=== PATIENT | female | born 1980 | race Caucasian/White ===

== ENCOUNTER 2016-11-13 20:15 | Emergency (ER) | payer MEDICAID, OTHER ==
[2016-11-13 20:46] VITALS: BP 123/72; PULSE 73; RESP 16; TEMP 98.7; O2SAT 100
--- NOTE | 2016-11-13 20:47 | ED PDOC ---
Arrival/HPI - General Chief Complaint: Breast Problem Time Seen by Provider: 11/13/16 20:31 Historian: Patient, Family (son) - History of Present Illness Narrative History of Present Illness (Text): 11/13/16 21:07 This 36 yo female presents to this ED c/o pruritic rash x 2 days. Patient stated last night left breast rash became painful. Rash blanches on palpation. Denies fever, sick contact, recent travel. Past Medical History - Provider Review Nursing Documentation Reviewed: Yes - Pulmonary Hx Asthma: Yes - Endocrine/Metabolic Hx Diabetes Mellitus Type 2: Yes - Psychiatric Hx Substance Use: No - Anesthesia Hx Anesthesia: No Hx Anesthesia Reactions: No Hx Malignant Hyperthermia: No Family/Social History - Physician Review Nursing Documentation Reviewed: Yes Family/Social History: No Known Family HX Smoking Status: Never Smoked Hx Alcohol Use: No Hx Substance Use: No Allergies/Home Meds Allergies/Adverse Reactions: Allergies No Known Allergies Allergy (Verified 11/13/16 20:39) Review of Systems - Review of Systems Constitutional: Normal. absent: Fatigue, Weight Change Eyes: Normal ENT: Normal Respiratory: Normal. absent: SOB, Cough Cardiovascular: Normal. absent: Chest Pain, Palpitations Gastrointestinal: Normal. absent: Abdominal Pain, Diarrhea, Nausea, Vomiting Genitourinary Female: Normal. absent: Dysuria, Frequency, Hematuria, Urine Output Changes, Vaginal Bleeding, Vaginal Discharge Musculoskeletal: Normal Skin: Rash, Pruritis, Cellulitis, Other (Left breast) Neurological: Normal. absent: Headache, Dizziness, Focal Weakness, Gait Changes , Speech Changes Endocrine: Normal Hemo/Lymphatic: Normal Psychiatric: Normal Physical Exam Vital Signs Temp Pulse Resp BP Pulse Ox 11/13/16 20:16 98.7 F 73 16 123/72 100 Temperature: Afebrile Blood Pressure: Normal Pulse: Regular Respiratory Rate: Normal Appearance: Positive for: Well-Appearing, Non-Toxic, Comfortable Pain Distress: None Mental Status: Positive for: Alert and Oriented X 3 - Systems Exam Head: Present: Atraumatic, Normocephalic Pupils: Present: PERRL Extroacular Muscles: Present: EOMI Conjunctiva: Present: Normal Mouth: Present: Moist Mucous Membranes Pharnyx: Present: Normal. No: ERYTHEMA, EXUDATE, TONSILS ENLARGED Neck: Present: Normal Range of Motion Respiratory/Chest: Present: Clear to Auscultation, Good Air Exchange. No: Respiratory Distress, Accessory Muscle Use Cardiovascular: Present: Regular Rate and Rhythm, Normal S1, S2. No: Murmurs Abdomen: Present: Normal Bowel Sounds. No: Tenderness, Distention, Peritoneal Signs Breast/Axillary: Present: Other ((+) 1 cm mild erythema area located LLQ of left breast. (+) scattered rash over UE, and trunk, which resembles contac dermatitis. Rash blanches on palpation. No abscess. No streaking erythema. No axillary painful nodes. 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 No: Axillary Lymphad, Discoloration, Fluctuance, Masses, Nipple Discharge, Swelling Back: Present: Normal Inspection. No: CVA Tenderness Upper Extremity: Present: Normal Inspection. No: Cyanosis, Edema Lower Extremity: Present: Normal Inspection. No: Edema Neurological: Present: GCS=15, CN II-XII Intact, Speech Normal Skin: Present: Warm, Dry, Rashes (See Breast), Normal Color Lymphatic: No: Axillary Adenopathy Psychiatric: Present: Alert, Oriented x 3, Normal Insight, Normal Concentration Medical Decision Making ED Course and Treatment: 11/13/16 22:17 Re-evaluation. Patient feels better. Discussed results and plan with patient who expresses understanding. All questions answered and there is agreement with the plan to discharge home with instructions. Patient stable for discharge. Return if symptoms persist or worsen Re-evaluation Time: 22:19 Reassessment Condition: Re-examined, Improved - Medication Orders Current Medication Orders: Discontinued Medications Amoxicillin/Clavulanate Potassium (Augmentin 875 Mg-125 Mg Tab) 1 tab PO STAT STA PRN Reason: Protocol Stop: 11/13/16 21:08 Last Admin: 11/13/16 22:27 Dose: 1 tab Diphenhydramine HCl (Benadryl) 25 mg PO STAT STA Stop: 11/13/16 21:34 Last Admin: 11/13/16 22:46 Dose: 25 mg Famotidine (Pepcid) 40 mg PO STAT STA Stop: 11/13/16 21:34 Last Admin: 11/13/16 22:46 Dose: 40 mg Tetanus/Reduced Diphtheria/Acell Pertussis (Boostrix Vaccine Inj) 0.5 ml IM .ONCE ONE Stop: 11/13/16 21:10 Last Admin: 11/13/16 22:27 Dose: 0.5 ml Trimethoprim/Sulfamethoxazole (Bactrim Ds Tab) 1 tab PO STAT STA PRN Reason: Protocol Stop: 11/13/16 21:34 Last Admin: 11/13/16 22:46 Dose: 1 tab Disposition/Present on Arrival - Present on Arrival Any Indicators Present on Arrival: No History of DVT/PE: No History of Uncontrolled Diabetes: No Urinary Catheter: No History of Decub. Ulcer: No History Surgical Site Infection Following: None - Disposition Have Diagnosis and Disposition been Completed?: Yes Diagnosis: Cellulitis, Contact dermatitis Disposition: HOME/ ROUTINE Disposition Time: 22:20 Patient Plan: Discharge Condition: GOOD Discharge Instructions (ExitCare): Contact Dermatitis (ED), Cellulitis (ED) Additional Instructions: Call private doctor for follow up visit in 1-2 days. Clean wound with soap and water daily, and applied OTC topical antibiotic cream. take medication as instructed. Return to emergency if rash worsen, or unable to see doctor. Prescriptions: Amoxicillin/Clavulanate [Augmentin 875 MG-125 MG] 1 tab PO BID #14 tab Hydroxyzine Pamoate [Vistaril] 25 mg PO TID PRN #20 capsule PRN Reason: Itching / Pruritus Sulfamethoxazole/Trimethoprim [Bactrim DS 800 mg-160 mg] 1 tab PO BID #14 tab Referrals: Eliu Shirley MD [Primary Care Provider] - Follow up with primary
[2016-11-13] MEDS ORDERED: Amoxicillin-Clav 875-125 mg Tab PO STA (21:07)
[2016-11-13] MEDS ORDERED: TDAP Vaccine 0.5 mL Syr IM ONE (21:09)
[2016-11-13] MEDS ORDERED: Tmp-Smz 800 mg-160 mg DS Tab PO STA (21:33)
[2016-11-13] MEDS ORDERED: DiphenhydrAMINE 12.5 mg/5 ml LIQ UD (5 ml) PO STA (21:33)
== END 2016-11-13 22:47 | disposition home or self-care (01) ==
LOC: ED 20:15
DX: L25.9 Unspecified contact dermatitis, unspecified cause (principal); N61.0 Mastitis without abscess; Z23 Encounter for immunization

== ENCOUNTER 2016-11-19 20:49 | Emergency (ER) | payer OTHER ==
[2016-11-19 21:11] VITALS: RESP 16; TEMP 99.2
--- NOTE | 2016-11-19 22:30 | ED PDOC ---
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 pt was seen in the ER and treated with medications for cellulitis to breast. pt states that she was then seen by PMD and given rx for mammogram. pt presents today requesting mammogram. pt concerned about cancer. pt denies family hx of cancer. no fever/ chills. pt states rash is pruritic. pt states she is now having bleeding to the rash. pt also c/o pain to the right knee and thigh x 1 week. pt states pain is intermittent. denies trauma or injury. denies swelling. no medications taken for pain. no other complaints. Past Medical History - Provider Review Nursing Documentation Reviewed: Yes - Travel History Have you recently traveled outside [place] w/in the past 3 mons?: No - Tetanus Immunization Tetanus Immunization: Unknown - Reproductive Menopause: No - Pulmonary Hx Asthma: Yes - Endocrine/Metabolic Hx Diabetes Mellitus Type 2: Yes - Psychiatric Hx Substance Use: No - Anesthesia Hx Anesthesia: No Hx Anesthesia Reactions: No Hx Malignant Hyperthermia: No Family/Social History - Physician Review Nursing Documentation Reviewed: Yes Family/Social History: Unknown Family HX Smoking Status: Never Smoked Hx Alcohol Use: No Hx Substance Use: No Allergies/Home Meds Allergies/Adverse Reactions: Allergies No Known Allergies Allergy (Verified 11/19/16 21:11) Home Medications: Home Meds Medication Instructions Recorded Confirmed Metformin ER [Glucophage XR] 500 mg PO DAILY 11/19/16 11/19/16 Review of Systems - Review of Systems Constitutional: absent: Fatigue, Fevers Respiratory: absent: SOB, Cough Cardiovascular: absent: Chest Pain, Palpitations Gastrointestinal: absent: Abdominal Pain, Nausea, Vomiting Genitourinary Female: absent: Dysuria, Frequency, Hematuria Musculoskeletal: Arthralgias (right knee pain). absent: Back Pain, Neck Pain Skin: Rash, Pruritis Physical Exam Vital Signs Reviewed: Yes Vital Signs Temp Pulse Resp BP Pulse Ox 11/19/16 23:53 60 16 122/67 99 11/19/16 21:04 99.2 F 75 16 104/62 98 Temperature: Afebrile Blood Pressure: Normal Pulse: Regular Respiratory Rate: Normal Appearance: Positive for: Well-Appearing, Non-Toxic, Comfortable Pain Distress: None Mental Status: Positive for: Alert and Oriented X 3 - Systems Exam Head: Present: Atraumatic Mouth: Present: Moist Mucous Membranes Neck: Present: Normal Range of Motion Respiratory/Chest: Present: Clear to Auscultation, Good Air Exchange. No: Respiratory Distress, Accessory Muscle Use Cardiovascular: Present: Regular Rate and Rhythm, Normal S1, S2. No: Murmurs Breast/Axillary: Present: Erythema (left breast there is erythematous excoriated rash to the upper outer aspect of the left breast; no purulent discharge noted. ), Symmetrical, Tender to Palpation. No: Axillary Lymphad, Fluctuance, Swelling Lower Extremity: Present: Normal Inspection, NORMAL PULSES, Normal ROM, Tenderness (right leg; + ttp over right distal thigh and right knee; no edema, no erythema; no ecchymosis; full rom of knee. ambulates with steady gait. sensation and distal pulses intact. cap refill <2. ), Neurovascularly Intact, Capillary Refill < 2 s. No: CALF TENDERNESS, Swelling Neurological: Present: GCS=15, Speech Normal Skin: Present: Warm, Dry Psychiatric: Present: Alert, Oriented x 3 Medical Decision Making ED Course and Treatment: 11/20/16 00:58 36yr old female presents with rash to left breast. has rx for mammogram. wants mammogram today. also with right knee and leg pain. xray knee; no fracture duplex; right leg; no dvt verbal report from [facility]. advised f/u with pmd and breast specialist. advised f/u with orthopedist for knee pain. advised continuing abx as prescribed and added bactroban. stressed importance of getting Mammogram to check for cancer as sometimes cancer can present as a rash. all information was translated using the cooperative manager telephone lineman #: [phone] impression; rash, breast, leg pain continue antibiotics as prescribed follow up with the breast specialist follow up with the orthopedist. keep wound clean and dry; apply bacitracin twice daily return immediately if symptoms worsen,persist or if new symptoms develop. - RAD Interpretation Radiology Orders: 11/19/16 22:16 KNEE W PATELLA RIGHT 3 VIEW [RAD] Stat DUPLEX LOWER EXTRM VEIN RIGHT [US] Stat - Medication Orders Current Medication Orders: Discontinued Medications Ketorolac Tromethamine (Toradol) 60 mg IM STAT STA Stop: 11/19/16 22:17 Last Admin: 11/19/16 22:36 Dose: 60 mg Disposition/Present on Arrival - Present on Arrival Any Indicators Present on Arrival: No History of DVT/PE: No History of Uncontrolled Diabetes: No Urinary Catheter: No History of Decub. Ulcer: No History Surgical Site Infection Following: None - Disposition Have Diagnosis and Disposition been Completed?: Yes Diagnosis: Rash, Knee pain Disposition: HOME/ ROUTINE Disposition Time: 00:48 Patient Plan: Discharge Condition: GOOD Discharge Instructions (ExitCare): Leg Pain (ED), Knee Pain (ED), Acute Rash ( ED) Additional Instructions: continue antibiotics as prescribed follow up with the breast specialist follow up with the orthopedist. keep wound clean and dry; apply bacitracin twice daily return immediately if symptoms worsen,persist or if new symptoms develop. Prescriptions: Ibuprofen [Motrin] 600 mg PO Q6H PRN #20 tab PRN Reason: pain/fever reduction Mupirocin 2% Ointment [Bactroban Ointment] 1 appl TP TID #1 tube Referrals: Eliu Shirley MD [Primary Care Provider] - Follow up with primary Mukul Grossman MD [Staff Provider] - Follow up with primary Jovani Singh MD [Staff Provider] - Follow up with primary
[2016-11-19 23:53] VITALS: BP 122/67; PULSE 60; O2SAT 99
--- NOTE | 2016-11-20 07:43 | RAD ---
PROCEDURE: Right Knee Radiographs. HISTORY: knee pain COMPARISON: None. FINDINGS: BONES: Minimal posterior lateral right patellar spurring No fracture. JOINTS: Minimal lateral patellofemoral osteoarthritis. JOINT EFFUSION: None. OTHER FINDINGS: None. IMPRESSION: Minimal lateral patellofemoral osteoarthrosis
--- NOTE | 2016-11-20 08:58 | US ---
PROCEDURE: Right lower extremity venous US HISTORY: Leg pain and swelling. Evaluate for DVT. PHYSICIAN(S): Alex Lee M.D. TECHNIQUE: Duplex sonography and color-flow Doppler with graded compression were used to evaluate the deep venous system of the right lower extremity. FINDINGS: The visualized deep venous system of the right lower extremity is sonographically normal and compressible. Normal waveforms and augmentation are seen. There is no sonographic evidence for deep venous thrombosis in the visualized segments of the right lower extremity. IMPRESSION: 1. No sonographic evidence for deep venous thrombosis in the visualized segments of the right lower extremity.
== END 2016-11-20 01:06 | disposition home or self-care (01) ==
LOC: ED 20:49
DX: R21 Rash and other nonspecific skin eruption (principal); M25.561 Pain in right knee
CPT/HCPCS: 73562; 93971; 96372; 99282; J1885